=== PATIENT | female | born 1960 | race Caucasian/White ===

== ENCOUNTER → 2019-05-23 09:01 | Outpatient (CLI) | payer OTHER ==
[2011-08-02 22:59] VITALS: BMI 26.8
--- NOTE | ~2019-05-23 | EC ---
PATIENT:MONICA PHILIP DATE OF SERVICE: 05/23/19 SEX: F MEDICAL RECORD: [id number] DATE OF : 56 [facility] AGE OF PATIENT: 58 ADMISSION DATE: 05/23/19 REFERRING PHYSICIAN: INTERPRETING PHYSICIAN: HAYLEY ELLSWORTH MD ECHOCARDIOGRAM REPORT ECHO CHARGES 4 ECHO COMPLETE Date: 05/23/19 CLINICAL DIAGNOSIS: TACHYCARDIA/ SOB/ RECENT PULMONARY EMBOLI ECHOCARDIOGRAPHIC MEASUREMENTS (adult normal given) AC root (d.<3.7cm) 2.8 cm LV Septum d (<1.2 cm> 1.2 cm Valve Excursion 1.6 cm LV Septum (systole) 1.6 cm Left Atria (s.<4.0cm> 3.5 cm LVPW d(<1.2cm) 1.3 cm RV (d.<2.3cm) 3.7 cm LVPW (sytole) 1.6 cm LV diastole(<5.6CM) 4.8 cm MV E-F(>70mm/sec) cm LV systole 2.9 cm LVOT Diameter 2.0 cm MV exc.(>10mm) 1.5 cm Est.ejection fraction (50-75%) % DOPPLER: LVIT cm/sec A 71.0 cm/sec E 62.0 cm/sec LA cm/sec RVSP 16 mmHg LVOT 93 cm/sec AOP1/2T m/s Asc. Ao 104 cm/sec RVOT 87 cm/sec RA cm/sec PA 106 cm/sec AV Gradient Peak 4.33 mmHg AV Mean 2.17 mmHg AV Area 2.4 cm MV Gradient Peak 2.34 mmHg MV Mean 0.88 mmHg MV Area cm COMMENTS: Roastmaster: Adriel BOWERS Director Of Corporate Real Estate: 1 Dr. Ellsworth TAPE# PACS Pericardial Effusion N DATE OF SERVICE: 05/23/2019 FINDINGS: 1. Left ventricular chamber size is within normal limits. Left ventricular systolic function is normal. Overall ejection fraction estimated at 60%. 2. Left atrium, right atrium, and right ventricle chamber sizes are within normal limits. 3. Valvular structures have normal structure and motion. 4. Doppler interrogation reveals no significant valvular insufficiency or stenosis. ECHOCARDIOGRAM REPORT [id number] MONICA PHILIP 5. No evidence of pericardial effusion or left ventricular thrombus. TRANSINT:[id number] Voice Confirmation ID: [id number] DOCUMENT ID: [id number] HAYLEY ELLSWORTH MD CC: [id number] DICTATION DATE: 05/27/19 1649 NAIL CUTTER: 05/27/19 2145 DEP CLI 05/23/19 [place] [id number]
== END | disposition home or self-care (01) ==
LOC: D.HCCECHO 09:01
PROVIDERS: ATTEND Internal Medicine Interventional Cardiology
DX: R00.0 Tachycardia, unspecified (principal)